=== PATIENT | male | born 1970 | race American Indian/Alaskan Native ===

== ENCOUNTER 2020-07-22 00:30 | Emergency (ER) | payer SELFPAY ==
[2020-07-22 01:57] VITALS: BP 113/84
[2020-07-22] MEDS ORDERED: BUTALB/ACETAMINOPHEN/CAFFEINE TAB PO ONE (05:51)
[2020-07-22] MEDS ORDERED: IBUPROFEN 600 MG TAB PO ONE (05:51)
--- NOTE | 2020-07-22 06:26 | Emergency Department Report ---
ED Eye Problem HPI - General Chief complaint: Eye Problems Stated complaint: BILATERAL EYE IRRITATION/REDNESS Source: patient Mode of arrival: Ambulatory Limitations: No Limitations - History of Present Illness Initial comments: Patient is a 50 yo AA male with no past medical history who presents to the ED with c/o acute onset persistent bilateral eye pain with redness, nasal and sinus congestion and frontal sinus congestion and pressure for the last 2 days. Patient states that these symptoms got worse in the last 12 hours. Patient states that he has been taking OTC remedies with no relief. Patient denies dizziness, nausea, vomiting, cough, sore throat, vision changes, chest pain, cough, dyspnea, fever and chills. MD chief complaint: eye pain (bilateral), eye redness (bilateral), other (headache) -: Sudden, days(s) (2) Onset Description: sudden Location: both eyes Place: home If Injury: none Eye Symptoms: burning, redness, pain, itching Severity: moderate Severity scale (0 -10): 6 If Pain, Quality: sharp Consistency: constant Associated Symptoms: headache. denies: neck pain, nausea/vomiting, cough, rhinorrhea, fever Treatments Prior to Arrival: none - Related Data Patient Tetanus UTD: No Previous Rx's Medication Instructions Recorded Last Taken Type Amoxicillin [Trimox CAP] 500 mg PO Q8H #30 capsule 07/22/20 Unknown Rx Butalb/Acetamin/Caff 50-325-40 1 - 2 tab PO Q6HR PRN #12 tab 07/22/20 Unknown Rx [Fioricet 50-325-40] Gentamicin 0.3% Ophth Soln 1 - 2 drops OP Q4H #1 bottle 07/22/20 Unknown Rx Ibuprofen [Motrin] 800 mg PO Q8HR PRN #24 tablet 07/22/20 Unknown Rx Allergies Allergy/AdvReac Type Severity Reaction Status Date / Time No Known Allergies Allergy Unverified 07/22/20 01:44 ED Review of Systems ROS: Stated complaint: BILATERAL EYE IRRITATION/REDNESS Other details as noted in HPI Constitutional: denies: chills, fever Eyes: eye pain (bilaterally). denies: eye discharge, vision change ENT: congestion, other (frontal sinus pressure and pain). denies: ear pain, throat pain Respiratory: denies: cough, orthopnea, shortness of breath, SOB with exertion, SOB at rest, wheezing Cardiovascular: denies: chest pain, palpitations Endocrine: no symptoms reported Gastrointestinal: denies: abdominal pain, nausea, diarrhea Genitourinary: denies: urgency, dysuria Musculoskeletal: denies: back pain, joint swelling, arthralgia Skin: denies: rash, lesions Neurological: headache. denies: weakness, paresthesias Psychiatric: denies: anxiety, depression Hematological/Lymphatic: denies: easy bleeding, easy bruising ED Past Medical Hx - Past Medical History Previous Medical History?: No - Surgical History Past Surgical History?: No - Social History Smoking Status: Never Smoker Substance Use Type: None - Medications Home Medications: Home Medications Medication Instructions Recorded Confirmed Last Taken Type Amoxicillin [Trimox CAP] 500 mg PO Q8H #30 capsule 07/22/20 Unknown Rx Butalb/Acetamin/Caff 50-325-40 1 - 2 tab PO Q6HR PRN #12 tab 07/22/20 Unknown Rx [Fioricet 50-325-40] Gentamicin 0.3% Ophth Soln 1 - 2 drops OP Q4H #1 bottle 07/22/20 Unknown Rx Ibuprofen [Motrin] 800 mg PO Q8HR PRN #24 tablet 07/22/20 Unknown Rx ED Physical Exam - General Limitations: No Limitations General appearance: alert, in no apparent distress - Head Head exam: Present: atraumatic, normocephalic, normal inspection - Eye Eye exam: Present: normal appearance, PERRL, EOMI, other (Bilateral erythematous conjunctiva) Pupils: Present: normal accommodation - ENT ENT exam: Present: normal orophraynx, mucous membranes moist, TM's normal bilaterally, normal external ear exam, other (Palpable frontal sinus pressure) - Neck Neck exam: Present: normal inspection, full ROM. Absent: lymphadenopathy, thyromegaly - Respiratory Respiratory exam: Present: normal lung sounds bilaterally. Absent: respiratory distress, wheezes, rales, rhonchi, chest wall tenderness, accessory muscle use, decreased breath sounds - Cardiovascular Cardiovascular Exam: Present: regular rate, normal rhythm, normal heart sounds. Absent: systolic murmur, diastolic murmur, rubs, gallop - GI/Abdominal GI/Abdominal exam: Present: soft, normal bowel sounds. Absent: tenderness, guarding, rebound, hyperactive bowel sounds, hypoactive bowel sounds, organomegaly - Extremities Exam Extremities exam: Present: normal inspection, full ROM, normal capillary refill - Back Exam Back exam: Present: normal inspection, full ROM. Absent: tenderness, CVA tenderness (R), CVA tenderness (L), muscle spasm, paraspinal tenderness, vertebral tenderness - Neurological Exam Neurological exam: Present: alert, oriented X3, CN II-XII intact, normal gait, reflexes normal - Psychiatric Psychiatric exam: Present: normal affect, normal mood - Skin Skin exam: Present: warm, dry, intact, normal color. Absent: rash ED Course Vital Signs 07/22/20 01:47 Temperature 98.0 F Pulse Rate 72 Respiratory 18 Rate Blood Pressure 113/84 O2 Sat by Pulse 97 Oximetry ED Medical Decision Making - Medical Decision Making This is a 50 yo AA male with no past medical history who presents to the ED with c/o acute onset persistent bilateral eye pain with redness, nasal and sinus congestion and frontal sinus congestion and pressure for the last 2 days. Patient states that these symptoms got worse in the last 12 hours. Patient states that he has been taking OTC remedies with no relief. In the ED, patient is alert and oriented x 3 and is in no acute distress. Patient was treated for pain in the ED, discharged home on medications. Patient was advised to return to the ED immediately if symptoms get worse, or otherwise follow up with hos prima ry care physician in 5-7 days for reevaluation. - Differential Diagnosis sinusitis; conjunctivitis; sinus headache; URI Critical care attestation.: If time is entered above; I have spent that time in minutes in the direct care of this critically ill patient, excluding procedure time. ED Disposition Clinical Impression: Acute non-recurrent frontal sinusitis, Sinus headache Acute conjunctivitis of both eyes Qualifiers: Acute conjunctivitis type: unspecified Qualified Code(s): H10.33 - Unspecified acute conjunctivitis, bilateral Disposition: - TO HOME OR SELFCARE Is pt being admited?: No Does the pt Need Aspirin: No Condition: Stable Instructions: Acute Headache (ED), Acute Bacterial Rhinosinusitis (ED), Conjunctivitis (ED) Additional Instructions: Take medications with food, drink plenty of fluids and follow up with your Primary Care Physician in 5-7 days for reevaluation. Return to the ED immediately if symptoms get worse. Prescriptions: Butalb/Acetamin/Caff 50-325-40 [Fioricet 50-325-40] 1 - 2 tab PO Q6HR PRN #12 tab PRN Reason: Headache Gentamicin 0.3% Ophth Soln 1 - 2 drops OP Q4H #1 bottle Ibuprofen [Motrin] 800 mg PO Q8HR PRN #24 tablet PRN Reason: Pain , Severe (7-10) Amoxicillin [Trimox CAP] 500 mg PO Q8H #30 capsule Referrals: [facility] [Provider Group] - 3-5 Days Forms: Work/School Release Form(ED) Time of Disposition: 06:26 Print Language: [id number]
== END 2020-07-22 06:52 | disposition home or self-care (01) ==
LOC: ED 00:30
DX: J01.10 Acute frontal sinusitis, unspecified (principal); H10.33 Unspecified acute conjunctivitis, bilateral; Z79.2 Long term (current) use of antibiotics; Z79.899 Other long term (current) drug therapy
CPT/HCPCS: 99282